=== PATIENT | female | born 1945 | race Caucasian/White ===

== ENCOUNTER 2022-02-06 04:35 | Day surgery (SDC) | payer OTHER ==
[2022-02-06 10:36] VITALS: BMI 24.8
[2022-02-06 11:46] VITALS: TEMP 98
[2022-02-06 14:30] VITALS: BP 141/83; PULSE 82; RESP 18
== END 2022-02-06 13:02 | disposition home or self-care (01) ==
LOC: JASU-ENDO 04:35
PROVIDERS: ATTEND Internal Medicine Gastroenterology
PROC: 0DBN8ZX Excision of Sigmoid Colon, Via Natural or Artificial Opening Endoscopic, Diagnostic (ICD-10-PCS; 2022-02-06)
PROC: 0DB98ZX Excision of Duodenum, Via Natural or Artificial Opening Endoscopic, Diagnostic (ICD-10-PCS; 2022-02-06)
PROC: 0DB78ZX Excision of Stomach, Pylorus, Via Natural or Artificial Opening Endoscopic, Diagnostic (ICD-10-PCS; 2022-02-06)
PROC: 0DBM8ZX Excision of Descending Colon, Via Natural or Artificial Opening Endoscopic, Diagnostic (ICD-10-PCS; principal; 2022-02-06 11:00)
DX: Z12.11 Encounter for screening for malignant neoplasm of colon (principal); K63.5 Polyp of colon; K57.30 Diverticulosis of large intestine without perforation or abscess without bleeding; K29.40 Chronic atrophic gastritis without bleeding; K29.80 Duodenitis without bleeding; I10 Essential (primary) hypertension
CPT/HCPCS: 88305-TC; 88342-TC